=== PATIENT | female | born 1985 | race Caucasian/White ===

== ENCOUNTER 2018-05-17 18:49 | Emergency (ER) | payer MEDICAID ==
[~2018-05-17] VITALS: Ht 157.5 cm; Wt 59.0 kg
[2018-05-17 19:08] VITALS: BP_SYST 101
--- NOTE | 2018-05-17 19:08 | NUR ---
Patient to ER bed 4 to gown for evaluation. Side rails up.
--- NOTE | 2018-05-17 19:30 | NUR ---
Patient to ER via triage with c/o weakness, tingling to her upper extremities, and c/o nausea x 1 week. Patient is awake, alert and oriented in no acute distress, vital signs stable, respirations even and unlabored, skin warm and dry to touch. Patient is awaiting evaluation by ER MD, will continue to observe and assess.
--- NOTE | 2018-05-17 19:43 | NUR ---
ED MD Pearl at bedside for medical evaluation.
[2018-05-17] MEDS ORDERED: NACL 0.9% 1,000 ML IV ONE (20:00)
--- NOTE | 2018-05-17 20:20 | NUR ---
Patient resting quietly in no acute distress, IV fluids infusing without difficulty, no redness or swelling noted at site.
[2018-05-17 20:31] LABS: CALCIUM 8.3 mg/dL (8.4-11.0); CREATININE 0.55 mg/dL (0.55-1.30); POTASSIUM 3.6 mmol/L (3.5-5.1)
[2018-05-17 20:33] LABS: MEAN CORPUSCULAR HGB CONC 34 % (32-36); MONOCYTES # (AUTO) 0.3 K/uL (0.0-1.0)
[2018-05-17 20:36] LABS: ALBUMIN 3.8 g/dL (3.4-4.8); BASOPHILS % (AUTO) 0.4 % (0.0-2.0); EOSINOPHILS % (AUTO) 0.7 % (0.0-4.0); HEMATOCRIT 34.3 % (36-48); HEMOGLOBIN 11.6 g/dL (12.0-16.0); LYMPHOCYTES # (AUTO) 1.1 K/uL (1.0-5.5); LYMPHOCYTES % (AUTO) 18.6 % (20.5-51.5); MEAN CORPUSCULAR HEMOGLOBIN 25 pg (27-31); MEAN CORPUSCULAR VOLUME 74 fL (79.0-98.0); MONOCYTES % (AUTO) 4.4 % (1.7-9.3); NEUTROPHILS # (AUTO) 4.6 K/uL (1.8-7.7); NEUTROPHILS % (AUTO) 75.9 % (40.0-70.0); PLATELET COUNT (AUTO) 225 K/uL (130-430); RED BLOOD CELL COUNT(AUTO) 4.62 MIL/uL (4.2-6.2); RED CELL DISTRIBUTION WIDTH 17.5 % (9.0-15.0); TOTAL BILIRUBIN 0.7 mg/dL (0.0-1.0)
--- NOTE | 2018-05-17 20:45 | NUR ---
Dr Pearl at bedside speaking with patient regarding results and plan of care. Questions answered by Dr Pearl.
[2018-05-17 21:05] VITALS: BP_SYST 104
--- NOTE | 2018-05-17 21:05 | NUR ---
Patient given written and verbal discharge instructions and verbalizes understanding. ER MD discussed with patient the results and treatment provided. Patient in stable condition. ID arm band removed. IV catheter removed intact and dressing applied, no active bleeding. No RX given. Patient educated on pain management and to follow up with PMD. Pain Scale 0. Opportunity for questions provided and answered. Medication side effect fact sheet provided. Patient resting quietly in no acute distress, vital signs stable, patient left ER ambulating with slow, steady gait in no acute distress.
== END 2018-05-17 21:05 | disposition home or self-care (01) ==
LOC: SED 18:49
DX: T67.5XXA Heat exhaustion, unspecified, initial encounter (principal); D64.9 Anemia, unspecified; X58.XXXA Exposure to other specified factors, initial encounter; Y93.89 Activity, other specified; Y92.89 Other specified places as the place of occurrence of the external cause; Y99.8 Other external cause status
CPT/HCPCS: 36415; 80053; 85025; 96360; 99284; J7030

== ENCOUNTER 2018-08-09 20:07 | Emergency (ER) | payer MEDICAID ==
[~2018-08-09] VITALS: Ht 157.5 cm; Wt 59.0 kg
[2018-08-09 20:26] VITALS: BP_SYST 113
[2018-08-09] MEDS ORDERED: NACL 0.9% 1,000 ML IV ONE (21:48)
[2018-08-09 21:54] LABS: BILIRUBIN,URINE NEGATIVE (NEGATIVE); BLOOD, URINE NEGATIVE (NEGATIVE); CLARITY/URINE CLEAR (CLEAR); COLOR,URINE YELLOW (YELLOW); GLUCOSE,URINE NEGATIVE (NEGATIVE); KETONES,URINE NEGATIVE (NEGATIVE); LEUKOCYTE ESTERASE ,URINE NEGATIVE (NEGATIVE); NITRITE, URINE NEGATIVE (NEGATIVE); PROTEIN URINE TRACE (NEGATIVE)
[2018-08-09] MEDS ORDERED: ONDANSETRON HCL 4 MG/2 ML VIAL IVP ONE (22:00)
[2018-08-09] MEDS ORDERED: KETOROLAC TROMETHAMINE 30 MG VIAL IVP ONE (22:00)
[2018-08-09 22:17] LABS: HEMOGLOBIN 11.5 g/dL (12.0-16.0); MEAN CORPUSCULAR HEMOGLOBIN 26 pg (27-31); MEAN CORPUSCULAR HGB CONC 33 % (32-36); MEAN CORPUSCULAR VOLUME 80 fL (79.0-98.0); PLATELET COUNT (AUTO) 170 K/uL (130-430); RED BLOOD CELL COUNT(AUTO) 4.38 MIL/uL (4.2-6.2); RED CELL DISTRIBUTION WIDTH 13.3 % (9.0-15.0); WHITE BLOOD COUNT (AUTO) 3.8 K/uL (4.8-10.8)
[2018-08-09] MEDS: NACL 0.9% 1,000 ML IV ONE ×2 (22:18→23:26)
[2018-08-09 22:27] LABS: CALCIUM 8.1 mg/dL (8.4-11.0); CREATININE 0.59 mg/dL (0.55-1.30); POTASSIUM 3.3 mmol/L (3.5-5.1)
[2018-08-09 22:31] LABS: ALBUMIN 3.5 g/dL (3.4-4.8); TOTAL BILIRUBIN 0.8 mg/dL (0.0-1.0)
[2018-08-09 22:32] LABS: INR 1.1 (0.8-1.2)
[2018-08-09 22:59] LABS: BAND % (MANUAL) 3 % (0-6); BASOPHILS % (MANUAL) 0 % (0-2); EOSINOPHILS % (MANUAL) 2 % (0-7); LYMPHOCYTES % (MANUAL) 32 % (20-46); MONOCYTES % (MANUAL) 6 % (0-11)
[2018-08-10 00:21] VITALS: BP_SYST 111
== END 2018-08-10 00:21 | disposition home or self-care (01) ==
LOC: SED 20:07
DX: K52.9 Noninfective gastroenteritis and colitis, unspecified (principal); R53.81 Other malaise; R03.0 Elevated blood-pressure reading, without diagnosis of hypertension; Z90.49 Acquired absence of other specified parts of digestive tract
CPT/HCPCS: 36415; 80053; 81003; 81025; 82150; 83690; 85007; 85027; 85610; 85730; 86710; 96361; 96374; 96375; 99284; J1885; J2405; J7030

== ENCOUNTER 2018-11-14 20:42 | Emergency (ER) | payer MEDICAID ==
[~2018-11-14] VITALS: Ht 157.5 cm; Wt 61.2 kg
[2018-11-14 20:50] VITALS: BP_SYST 109
[2018-11-14 22:00] VITALS: BP_SYST 109
== END 2018-11-14 22:00 | disposition home or self-care (01) ==
LOC: SED 20:42
DX: B86 Scabies (principal); R21 Rash and other nonspecific skin eruption
CPT/HCPCS: 99282

== ENCOUNTER 2019-01-14 20:35 | Emergency (ER) | payer MEDICAID ==
[~2019-01-14] VITALS: Ht 157.5 cm; Wt 59.0 kg
[2019-01-14 20:44] VITALS: BP_SYST 108
[2019-01-14] MEDS ORDERED: LIDOCAINE 1% 10 MG/ML, 20 ML MDV INJ ONE (22:00)
[2019-01-14] MEDS ORDERED: BACITRACIN 1 GM OINT TP ONE (22:30)
[2019-01-14 22:44] VITALS: BP_SYST 110
[2019-01-14] MEDS ORDERED: IBUPROFEN 800 MG TABLET PO ONE (22:45)
== END 2019-01-14 22:45 | disposition home or self-care (01) ==
LOC: SED 20:35
DX: S91.201A Unspecified open wound of right great toe with damage to nail, initial encounter (principal); W51.XXXA Accidental striking against or bumped into by another person, initial encounter; X58.XXXA Exposure to other specified factors, initial encounter; Y93.89 Activity, other specified; Y92.89 Other specified places as the place of occurrence of the external cause; Y99.8 Other external cause status
CPT/HCPCS: 11730; 99283; J2001

== ENCOUNTER 2019-06-05 15:30 | Emergency (ER) | payer MEDICAID ==
[~2019-06-05] VITALS: Ht 157.5 cm; Wt 61.7 kg
[2019-06-05 15:39] VITALS: BP_SYST 118
--- NOTE | 2019-06-05 15:42 | NUR ---
Patient to ER bed 07 to gown for evaluation. Side rails up.
--- NOTE | 2019-06-05 15:44 | NUR ---
Pt brought by self , A&Ox4, ambulatory , pt presents to ER with c/o diffuse abdominal pain , constipation, N/V starting one week ago, no active vomiting noted at this time, pt denies vaginal bleeding, skin pink and warm, cap refill <3, VSS.
--- NOTE | 2019-06-05 16:08 | NUR ---
Dr Dexter at bedside examining patient
[2019-06-05] MEDS ORDERED: KETOROLAC TROMETHAMINE 60 MG/2 ML VIAL IM ONE (16:15)
[2019-06-05 16:40] LABS: BASOPHILS % (AUTO) 0.5 % (0.0-2.0); EOSINOPHILS # (AUTO) 0.1 K/uL (0.0-0.4); EOSINOPHILS % (AUTO) 1.3 % (0.0-4.0); HEMATOCRIT 34.6 % (36-48); HEMOGLOBIN 11.3 g/dL (12.0-16.0); LYMPHOCYTES % (AUTO) 15.7 % (20.5-51.5); MEAN CORPUSCULAR HEMOGLOBIN 26 pg (27-31); MEAN CORPUSCULAR HGB CONC 33 % (32-36); MEAN CORPUSCULAR VOLUME 80 fL (79.0-98.0); MONOCYTES # (AUTO) 0.4 K/uL (0.0-1.0); MONOCYTES % (AUTO) 5.7 % (1.7-9.3); NEUTROPHILS # (AUTO) 4.9 K/uL (1.8-7.7); NEUTROPHILS % (AUTO) 76.8 % (40.0-70.0); PLATELET COUNT (AUTO) 224 K/uL (130-430); RED BLOOD CELL COUNT(AUTO) 4.36 MIL/uL (4.2-6.2); RED CELL DISTRIBUTION WIDTH 14.2 % (9.0-15.0); WHITE BLOOD COUNT (AUTO) 6.4 K/uL (4.8-10.8)
--- NOTE | 2019-06-05 16:45 | NUR ---
Pt A&Ox4,VSS, respirations even and unlabored
[2019-06-05 16:58] LABS: CALCIUM 8.5 mg/dL (8.4-11.0); CREATININE 0.62 mg/dL (0.55-1.30); POTASSIUM 3.7 mmol/L (3.5-5.1)
[2019-06-05 17:06] LABS: ALBUMIN 3.3 g/dL (3.4-4.8); TOTAL BILIRUBIN 0.2 mg/dL (0.0-1.0)
--- NOTE | 2019-06-05 18:30 | NUR ---
Pt off the unit for CT
--- NOTE | 2019-06-05 18:44 | NUR ---
Pt returned from CT on stable condition.
--- NOTE | 2019-06-05 18:44 | NUR ---
Pt A&Ox4, VSS, respirations even and unlabored.
--- NOTE | 2019-06-05 19:03 | NUR ---
Julio vicente in [facility] - 06/05/19 at 1903 by [email or web address] Pt c/o abdominal burning , Dr Dexter notified.
--- NOTE | 2019-06-05 19:03 | NUR ---
Pt c/o sensation of burning in the abdominal area , Dr Dexter notified.
--- NOTE | 2019-06-05 19:04 | NUR ---
Report given to Vanita POLLACK
--- NOTE | 2019-06-05 19:14 | NUR ---
ER Dr. Dexter at bedside explained results to patient.
--- NOTE | 2019-06-05 19:14 | NUR ---
medication was given, pt tolerated well. No adverse reaction, will continue to monitor.
[2019-06-05] MEDS ORDERED: MAG HYDROX/AL HYDROX/SIMETH 30 ML, DICYCLOMINE HCL 20 MG, LIDOCAINE VISCOUS 2% 15ML (PO... PO ONE ×3 (19:15)
[2019-06-05 19:25] VITALS: BP_SYST 118
--- NOTE | 2019-06-05 19:26 | NUR ---
Patient given written and verbal discharge instructions and verbalizes understanding. ER MD discussed with patient the results and treatment provided. Patient in stable condition. ID arm band removed. Rx of Tramadol given. Patient educated on pain management and to follow up with PMD. Pain Scale 0. Opportunity for questions provided and answered. Medication side effect fact sheet provided.
== END 2019-06-05 19:25 | disposition home or self-care (01) ==
LOC: SED 15:30
DX: R74.0 Nonspecific elevation of levels of transaminase and lactic acid dehydrogenase [LDH] (principal); R10.30 Lower abdominal pain, unspecified; Z90.49 Acquired absence of other specified parts of digestive tract
CPT/HCPCS: 36415; 74018; 74176; 80053; 81002; 81025; 83690; 85025; 96372; 99284; J1885; J2001

== ENCOUNTER 2021-05-08 21:23 | Emergency (ER) | payer MEDICAID ==
[~2021-05-08] VITALS: Ht 157.5 cm; Wt 72.6 kg
[2021-05-08 21:32] VITALS: BP_SYST 118
[2021-05-08 22:43] LABS: EOSINOPHILS # (AUTO) 0.1 K/uL (0.0-0.4); HEMOGLOBIN 11.6 g/dL (12.0-16.0); WHITE BLOOD COUNT (AUTO) 5.8 K/uL (4.8-10.8)
[2021-05-08 22:48] LABS: BASOPHILS % (AUTO) 0.7 % (0.0-2.0); EOSINOPHILS % (AUTO) 2.3 % (0.0-4.0); HEMATOCRIT 34.6 % (36-48); LYMPHOCYTES # (AUTO) 1.5 K/uL (1.0-5.5); LYMPHOCYTES % (AUTO) 25.8 % (20.5-51.5); MEAN CORPUSCULAR HEMOGLOBIN 27 pg (27-31); MEAN CORPUSCULAR HGB CONC 34 % (32-36); MEAN CORPUSCULAR VOLUME 80 fL (79.0-98.0); MONOCYTES # (AUTO) 0.4 K/uL (0.0-1.0); MONOCYTES % (AUTO) 6.5 % (1.7-9.3); NEUTROPHILS # (AUTO) 3.8 K/uL (1.8-7.7); NEUTROPHILS % (AUTO) 64.7 % (40.0-70.0); PLATELET COUNT (AUTO) 212 K/uL (130-430); RED BLOOD CELL COUNT(AUTO) 4.35 MIL/uL (4.2-6.2); RED CELL DISTRIBUTION WIDTH 14.1 % (9.0-15.0)
[2021-05-08 22:49] LABS: CALCIUM 8.1 mg/dL (8.4-11.0); CREATININE 0.68 mg/dL (0.55-1.30); POTASSIUM 3.8 mmol/L (3.5-5.1)
[2021-05-08 23:04] LABS: ALBUMIN 3.5 g/dL (3.4-4.8); THYROID STIMULATING HORMONE 0.45 uIu/mL (0.36-3.74); TOTAL BILIRUBIN 0.2 mg/dL (0.0-1.0)
[2021-05-09 00:53] LABS: BILIRUBIN,URINE NEGATIVE (NEGATIVE); BLOOD, URINE 1+ (NEGATIVE); CLARITY/URINE CLEAR (CLEAR); COLOR,URINE YELLOW (YELLOW); GLUCOSE,URINE NEGATIVE (NEGATIVE); KETONES,URINE NEGATIVE (NEGATIVE); LEUKOCYTE ESTERASE ,URINE NEGATIVE (NEGATIVE); NITRITE, URINE POSITIVE (NEGATIVE); PROTEIN URINE NEGATIVE (NEGATIVE); UROBILINOGEN,URINE 0.2 (0.2-1.0)
[2021-05-09 00:55] LABS: BACTERIA,URINE MODERATE /HPF (None Seen)
[2021-05-09 00:58] LABS: BARBITURATE, URINE NEGATIVE (NEG <=200); BENZODIAZEPINE, URINE NEGATIVE (NEG <=150); CANNABINOID, URINE NEGATIVE (NEG <=50); COCAINE, URINE NEGATIVE (NEG <=150); METHAMPHETAMINES SCREEN,URINE NEGATIVE (NEG <=500); OPIATE, URINE NEGATIVE (NEG <=100); PHENCYCLIDINE SCREEN,URINE NEGATIVE (NEG <=25); UR TRICYCLIC ANTIDEPRESSANTS NEGATIVE (NEG <=300); URINE AMPHETAMINE NEGATIVE (NEG <=500); URINE METHADONE NEGATIVE (NEG <=200); URINE OXYCODONE SCREEN NEGATIVE (NEG <=100); URINE PROPOXYPHENE SCREEN NEGATIVE (NEG <=300)
[2021-05-09] MEDS ORDERED: CEPH250C PO (01:58)
[2021-05-09] MEDS ORDERED: cephALEXin 500 MG CAPSULE PO ONE (02:00)
[2021-05-09 02:22] VITALS: BP_SYST 118
== END 2021-05-09 02:22 | disposition home or self-care (01) ==
LOC: SED 21:23
DX: R20.2 Paresthesia of skin (principal); Z79.899 Other long term (current) drug therapy
CPT/HCPCS: 36415; 70450-TC; 76376; 80053; 80307; 81000; 81025; 84443; 85025; 87086; 99284

== ENCOUNTER 2021-11-15 | Emergency (ER) | payer MEDICAID ==
[~2021-11-15] VITALS: Ht 157.5 cm; Wt 72.6 kg
[~2021-11-15] MED LIST: CEPH250C PO
[2021-11-15 00:10] VITALS: BP_SYST 128
[2021-11-15] MEDS ORDERED: NACL 0.9% 1,000 ML IV ONE (00:45)
[2021-11-15] MEDS ORDERED: KETOROLAC TROMETHAMINE 30 MG VIAL IVP ONE (00:45)
[2021-11-15] MEDS ORDERED: ONDANSETRON HCL 4 MG/2 ML VIAL IVP ONE (00:45)
[2021-11-15 01:24] LABS: CALCIUM 8.3 mg/dL (8.4-11.0); CREATININE 0.6 mg/dL (0.55-1.30); POTASSIUM 3.6 mmol/L (3.5-5.1)
[2021-11-15 01:30] LABS: ALBUMIN 3.5 g/dL (3.4-4.8); BASOPHILS % (AUTO) 0.4 % (0.0-2.0); EOSINOPHILS # (AUTO) 0.1 K/uL (0.0-0.4); EOSINOPHILS % (AUTO) 1.2 % (0.0-4.0); HEMATOCRIT 34.2 % (36-48); HEMOGLOBIN 11.3 g/dL (12.0-16.0); LYMPHOCYTES # (AUTO) 1.6 K/uL (1.0-5.5); LYMPHOCYTES % (AUTO) 24.6 % (20.5-51.5); MEAN CORPUSCULAR HEMOGLOBIN 24 pg (27-31); MEAN CORPUSCULAR HGB CONC 33 % (32-36); MEAN CORPUSCULAR VOLUME 74 fL (79.0-98.0); MONOCYTES # (AUTO) 0.4 K/uL (0.0-1.0); MONOCYTES % (AUTO) 6.1 % (1.7-9.3); NEUTROPHILS # (AUTO) 4.5 K/uL (1.8-7.7); NEUTROPHILS % (AUTO) 67.7 % (40.0-70.0); PLATELET COUNT (AUTO) 218 K/uL (130-430); RED BLOOD CELL COUNT(AUTO) 4.62 MIL/uL (4.2-6.2); RED CELL DISTRIBUTION WIDTH 15.2 % (9.0-15.0); TOTAL BILIRUBIN 0.3 mg/dL (0.0-1.0); WHITE BLOOD COUNT (AUTO) 6.6 K/uL (4.8-10.8)
[2021-11-15 01:33] LABS: BILIRUBIN,URINE NEGATIVE (NEGATIVE); BLOOD, URINE 1+ (NEGATIVE); CLARITY/URINE CLEAR (CLEAR); COLOR,URINE YELLOW (YELLOW); GLUCOSE,URINE NEGATIVE (NEGATIVE); KETONES,URINE NEGATIVE (NEGATIVE); LEUKOCYTE ESTERASE ,URINE NEGATIVE (NEGATIVE); NITRITE, URINE NEGATIVE (NEGATIVE); PROTEIN URINE TRACE (NEGATIVE)
[2021-11-15] MEDS ORDERED: MORPHINE 4 MG INJ. 4 MG/ML VIAL IVP ONE (01:45)
[2021-11-15] MEDS ORDERED: MORPHINE 4 MG INJ. 4 MG/ML VIAL ONE (01:49)
[2021-11-15] MEDS ORDERED: IBUP-1971 PO (02:37)
[2021-11-15] MEDS ORDERED: HYDR-3917 PO (02:37)
[2021-11-15] MEDS ORDERED: ONDA8TAB60 PO (02:37)
[2021-11-15] MEDS ORDERED: OMEP40CA20 PO (02:37)
[2021-11-15] MEDS ORDERED: CIPR500T5 PO (02:39)
[2021-11-15 03:53] VITALS: BP_SYST 114
[2021-11-15 04:14] LABS: URINE SULFO SALICYLIC ACID NEGATIVE (NEGATIVE)
[2021-11-15 04:15] LABS: BACTERIA,URINE MODERATE /HPF (None Seen); MUCUS,URINE None Seen /LPF (None Seen); RBC,URINE 20-50 /HPF (0-3)
== END 2021-11-15 03:53 | disposition home or self-care (01) ==
LOC: SED
DX: K42.9 Umbilical hernia without obstruction or gangrene (principal); R10.13 Epigastric pain; R19.7 Diarrhea, unspecified
CPT/HCPCS: 36415; 74176; 76376; 80053; 81000; 81025; 83690; 85025; 87086; 96374; 96375; 99284; J1885; J2270; J2405

== ENCOUNTER 2022-01-07 23:35 | Emergency (ER) | payer MEDICAID ==
[~2022-01-07] VITALS: Ht 157.5 cm; Wt 77.1 kg
[~2022-01-07 23:35] MED LIST changes: +CIPR500T5 PO; +HYDR-3917 PO; +IBUP-1971 PO; +OMEP40CA20 PO; +ONDA8TAB60 PO
[2022-01-07 23:53] VITALS: BP_SYST 130
--- NOTE | 2022-01-07 23:58 | NUR ---
Pt placed to ER waiting room in stable condition.
--- NOTE | 2022-01-08 00:20 | NUR ---
Pt placed to ER bed 03, report given to RANJEET Locke.
--- NOTE | 2022-01-08 00:34 | NUR ---
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 NO THE BILATERAL FLANK PAIN RETURNED 6/10 ACHING FEELING. FOR SEVERAL DAYS,NO N/V/D. NO RESP DISTRESS. BLOOD OBTAINED AND LAC 20G IV STARTED. 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 PT ALSO C/O EPIGASTRIC PAIN FOR SERVAL DAYS
--- NOTE | 2022-01-08 00:42 | NUR ---
URINE PREG= NEGATIVE
[2022-01-08 01:20] LABS: BILIRUBIN,URINE NEGATIVE (NEGATIVE); BLOOD, URINE NEGATIVE (NEGATIVE); CLARITY/URINE CLEAR (CLEAR); COLOR,URINE YELLOW (YELLOW); GLUCOSE,URINE NEGATIVE (NEGATIVE); KETONES,URINE NEGATIVE (NEGATIVE); LEUKOCYTE ESTERASE ,URINE NEGATIVE (NEGATIVE); NITRITE, URINE NEGATIVE (NEGATIVE); PH,URINE 6.5 (5.0-8.0); PROTEIN URINE NEGATIVE (NEGATIVE); UROBILINOGEN,URINE 0.2 (0.2-1.0)
[2022-01-08 01:22] LABS: HEMOGLOBIN 11.6 g/dL (12.0-16.0)
[2022-01-08 01:22] LABS: CALCIUM 8.8 mg/dL (8.4-11.0); CREATININE 0.7 mg/dL (0.55-1.30); POTASSIUM 3.7 mmol/L (3.5-5.1)
[2022-01-08 01:27] LABS: ALBUMIN 3.7 g/dL (3.4-4.8); TOTAL BILIRUBIN 0.2 mg/dL (0.0-1.0)
[2022-01-08 01:28] LABS: BASOPHILS % (AUTO) 0.7 % (0.0-2.0); EOSINOPHILS # (AUTO) 0.1 K/uL (0.0-0.4); EOSINOPHILS % (AUTO) 1.3 % (0.0-4.0); HEMATOCRIT 36.2 % (36-48); LYMPHOCYTES # (AUTO) 1.9 K/uL (1.0-5.5); MEAN CORPUSCULAR HEMOGLOBIN 24 pg (27-31); MEAN CORPUSCULAR HGB CONC 32 % (32-36); MEAN CORPUSCULAR VOLUME 76 fL (79.0-98.0); MONOCYTES # (AUTO) 0.5 K/uL (0.0-1.0); MONOCYTES % (AUTO) 6.6 % (1.7-9.3); NEUTROPHILS # (AUTO) 4.4 K/uL (1.8-7.7); NEUTROPHILS % (AUTO) 64.4 % (40.0-70.0); PLATELET COUNT (AUTO) 222 K/uL (130-430); RED BLOOD CELL COUNT(AUTO) 4.79 MIL/uL (4.2-6.2); RED CELL DISTRIBUTION WIDTH 15.4 % (9.0-15.0); WHITE BLOOD COUNT (AUTO) 6.9 K/uL (4.8-10.8)
[2022-01-08 01:41] LABS: HCG,QUAL RESULT NEGATIVE (NEGATIVE)
[2022-01-08] MEDS ORDERED: MAG-AL HYDROX/SIMETH 30 ML UDC PO ONE (02:00)
[2022-01-08] MEDS ORDERED: LIDOCAINE VISCOUS 2%, 15 ML UDC MM ONE (02:00)
[2022-01-08] MEDS ORDERED: DICYCLOMINE HCL 10 MG/5 ML SOLUTION PO ONE (02:00)
[2022-01-08] MEDS ORDERED: FAMO-132 PO (02:20)
--- NOTE | 2022-01-08 02:37 | NUR ---
UPON D/C HOME PT GIVEN INSTRUCTIONS AND WORK NOTE, PT VERBALIZED PAIN RESOLVED AND NO RESP DISTRESS AND NO C/O CP UPON D/C. LAC 20G IV D/C'D, CATH COMPLETE ADN INTACT WITH DRSG APPLIED TO SITE. PT AMBULATED OUT OF ER BY ITZEL.
[2022-01-08 02:59] VITALS: BP_SYST 123
== END 2022-01-08 02:59 | disposition home or self-care (01) ==
LOC: SED 23:35
DX: R10.9 Unspecified abdominal pain (principal); M54.50 Low back pain, unspecified; Z79.899 Other long term (current) drug therapy
CPT/HCPCS: 36415; 80053; 81003; 81025; 83690; 84703; 85025; 99284; J2001

== ENCOUNTER 2022-06-04 19:27 | Emergency (ER) | payer MEDICAID ==
[~2022-06-04] VITALS: Ht 157.5 cm; Wt 78.9 kg
[~2022-06-04 19:27] MED LIST changes: +FAMO-132 PO
[2022-06-04 19:32] VITALS: BP_SYST 113
[2022-06-04 20:13] LABS: BASOPHILS % (AUTO) 0.4 % (0.0-2.0); EOSINOPHILS % (AUTO) 0.3 % (0.0-4.0); HEMATOCRIT 35.4 % (36-48); HEMOGLOBIN 11.7 g/dL (12.0-16.0); LYMPHOCYTES # (AUTO) 0.7 K/uL (1.0-5.5); LYMPHOCYTES % (AUTO) 11.7 % (20.5-51.5); MEAN CORPUSCULAR HEMOGLOBIN 25 pg (27-31); MEAN CORPUSCULAR HGB CONC 33 % (32-36); MEAN CORPUSCULAR VOLUME 75 fL (79.0-98.0); MONOCYTES # (AUTO) 0.2 K/uL (0.0-1.0); MONOCYTES % (AUTO) 4.1 % (1.7-9.3); NEUTROPHILS % (AUTO) 83.5 % (40.0-70.0); PLATELET COUNT (AUTO) 213 K/uL (130-430); RED CELL DISTRIBUTION WIDTH 14.9 % (9.0-15.0)
[2022-06-04 20:48] LABS: CREATININE 0.58 mg/dL (0.55-1.30); POTASSIUM 3.7 mmol/L (3.5-5.1)
[2022-06-04 20:53] LABS: ALBUMIN 3.5 g/dL (3.4-4.8); C-REACTIVE PROTEIN QUANT 1.3 mg/dL (0-0.5); TOTAL BILIRUBIN 0.5 mg/dL (0.0-1.0)
[2022-06-04] MEDS ORDERED: HYDR-3917 PO (21:55)
[2022-06-04] MEDS ORDERED: IBUP-1969 PO (21:55)
[2022-06-04] MEDS ORDERED: IBUPROFEN 600 MG TABLET PO ONE (22:00)
[2022-06-04] MEDS ORDERED: HYDROcodone/ACETAMIN 10-325 MG TAB PO ONE (22:00)
[2022-06-04 23:00] VITALS: BP_SYST 125
[2022-06-04 23:12] LABS: BILIRUBIN,URINE NEGATIVE (NEGATIVE); CLARITY/URINE CLEAR (CLEAR); COLOR,URINE YELLOW (YELLOW); GLUCOSE,URINE NEGATIVE (NEGATIVE); KETONES,URINE NEGATIVE (NEGATIVE); LEUKOCYTE ESTERASE ,URINE NEGATIVE (NEGATIVE); NITRITE, URINE NEGATIVE (NEGATIVE); PROTEIN URINE NEGATIVE (NEGATIVE)
[2022-06-04 23:22] LABS: BLOOD, URINE 3+ (NEGATIVE)
[2022-06-05 00:34] LABS: BACTERIA,URINE MODERATE /HPF (None Seen); RBC,URINE 20-50 /HPF (0-3); WBC,URINE 0-3 /HPF (0-3)
[2022-06-05 00:36] LABS: MUCUS,URINE 3+ /LPF (None Seen)
== END 2022-06-04 23:00 | disposition home or self-care (01) ==
LOC: SED 19:27
DX: R10.32 Left lower quadrant pain (principal); Z79.899 Other long term (current) drug therapy
CPT/HCPCS: 36415; 76376; 80053; 81000; 83605; 83690; 84703; 85025; 86140; 87086; 87186-TC; 99284

== ENCOUNTER 2023-07-26 20:26 | Emergency (ER) | payer MEDICAID ==
[~2023-07-26] VITALS: Ht 157.5 cm; Wt 81.6 kg
[~2023-07-26 20:26] MED LIST changes: +IBUP-1969 PO
[2023-07-26 21:16] VITALS: BP_SYST 113; PULSE 113; RESP 18; TEMP 98.3; O2SAT 97
[2023-07-26 23:53] LABS: BASOPHILS # (AUTO) 0.1 K/uL (0.0-0.2); BASOPHILS % (AUTO) 0.3 % (0.0-2.0); EOSINOPHILS % (AUTO) 0.1 % (0.0-4.0); HEMATOCRIT 39.1 % (36-48); HEMOGLOBIN 12.4 g/dL (12.0-16.0); LYMPHOCYTES # (AUTO) 1.1 K/uL (1.0-5.5); LYMPHOCYTES % (AUTO) 6.5 % (20.5-51.5); MEAN CORPUSCULAR HEMOGLOBIN 24 pg (27-31); MEAN CORPUSCULAR HGB CONC 32 % (32-36); MEAN CORPUSCULAR VOLUME 77 fL (79.0-98.0); MONOCYTES # (AUTO) 0.5 K/uL (0.0-1.0); MONOCYTES % (AUTO) 2.9 % (1.7-9.3); NEUTROPHILS # (AUTO) 15.8 K/uL (1.8-7.7); NEUTROPHILS % (AUTO) 90.2 % (40.0-70.0); PLATELET COUNT (AUTO) 274 K/uL (130-430); RED CELL DISTRIBUTION WIDTH 14.8 % (9.0-15.0); WHITE BLOOD COUNT (AUTO) 17.5 K/uL (4.8-10.8)
[2023-07-27 00:15] LABS: CREATININE 0.61 mg/dL (0.55-1.30); POTASSIUM 4.2 mmol/L (3.5-5.1)
[2023-07-27 00:20] LABS: ALBUMIN 3.7 g/dL (3.4-4.8); TOTAL BILIRUBIN 0.6 mg/dL (0.0-1.0); TOTAL PROTEIN, SERUM 7.5 g/dL (6.4-8.3)
[2023-07-27] MEDS ORDERED: MORPHINE 4 MG INJ. 4 MG/ML VIAL IVP ONE ×2 (01:00→03:30)
[2023-07-27] MEDS ORDERED: ONDANSETRON HCL 4 MG/2 ML VIAL IVP ONE (01:00)
[2023-07-27] MEDS ORDERED: NACL 0.9% 1,000 ML IV ONE (01:00)
[2023-07-27 02:01] LABS: BILIRUBIN,URINE NEGATIVE (NEGATIVE); CLARITY/URINE CLEAR (CLEAR); COLOR,URINE YELLOW (YELLOW); GLUCOSE,URINE NEGATIVE (NEGATIVE); KETONES,URINE NEGATIVE (NEGATIVE); LEUKOCYTE ESTERASE ,URINE NEGATIVE (NEGATIVE); NITRITE, URINE NEGATIVE (NEGATIVE); PROTEIN URINE NEGATIVE (NEGATIVE); UROBILINOGEN,URINE 0.2 (0.2-1.0)
[2023-07-27 02:09] LABS: BLOOD, URINE TRACE (NEGATIVE)
[2023-07-27 02:10] LABS: BACTERIA,URINE None Seen /HPF (None Seen); WBC,URINE 0-3 /HPF (0-3)
[2023-07-27] MEDS ORDERED: POLY119P2 PO (05:37)
[2023-07-27] MEDS ORDERED: HYDR-3917 PO (05:37)
[2023-07-27] MEDS ORDERED: DICY-14 PO (05:37)
[2023-07-27 05:49] VITALS: BP_SYST 104; PULSE 89; RESP 20; TEMP 97.7; O2SAT 100
== END 2023-07-27 05:51 | disposition home or self-care (01) ==
LOC: SED 20:26
DX: K43.9 Ventral hernia without obstruction or gangrene (principal); R10.9 Unspecified abdominal pain; D72.829 Elevated white blood cell count, unspecified; R11.2 Nausea with vomiting, unspecified; Z79.899 Other long term (current) drug therapy
CPT/HCPCS: 99285; 80053; 81000; 83690; 85025; 87040; 36415; 81025; 83605; 74176; 96374; 96361; 96375; 76376; 96376; J2405; J2270; J7030

== ENCOUNTER 2024-01-21 20:50 | Emergency (ER) | payer MEDICAID ==
[~2024-01-21 20:50] MED LIST changes: +DICY-14 PO; +POLY119P2 PO
== END 2024-01-21 22:05 | disposition left against medical advice (07) ==
LOC: SED 20:50
DX: T81.49XA Infection following a procedure, other surgical site, initial encounter (principal); Z53.21 Procedure and treatment not carried out due to patient leaving prior to being seen by health care provider

== ENCOUNTER 2024-03-13 09:19 | Emergency (ER) | payer MEDICAID ==
[~2024-03-13] VITALS: Ht 157.5 cm; Wt 77.1 kg
[2024-03-13 09:20] VITALS: BP_SYST 120; PULSE 89; RESP 18; TEMP 98.2; O2SAT 98
[2024-03-13] MEDS: KETOROLAC TROMETHAMINE 60 MG/2 ML VIAL IM ONE (09:41)
[2024-03-13] MEDS: HYDROcodone/ACETAMIN 10-325 MG TAB PO ONE (09:42)
[2024-03-13 09:54] LABS: ERYTHROCYTE SEDIMENTATION RATE 11 MM/HR (0-20)
[2024-03-13 10:01] LABS: BASOPHILS % (AUTO) 0.6 % (0.0-2.0); EOSINOPHILS # (AUTO) 0.1 K/uL (0.0-0.4); EOSINOPHILS % (AUTO) 1.7 % (0.0-4.0); HEMATOCRIT 34.5 % (36-48); HEMOGLOBIN 11.3 g/dL (12.0-16.0); LYMPHOCYTES # (AUTO) 1.2 K/uL (1.0-5.5); MEAN CORPUSCULAR HEMOGLOBIN 25 pg (27-31); MEAN CORPUSCULAR HGB CONC 33 % (32-36); MEAN CORPUSCULAR VOLUME 76 fL (79.0-98.0); MONOCYTES # (AUTO) 0.3 K/uL (0.0-1.0); MONOCYTES % (AUTO) 5.2 % (1.7-9.3); NEUTROPHILS # (AUTO) 3.7 K/uL (1.8-7.7); NEUTROPHILS % (AUTO) 69.5 % (40.0-70.0); PLATELET COUNT (AUTO) 245 K/uL (130-430); RED BLOOD CELL COUNT(AUTO) 4.55 MIL/uL (4.2-6.2); RED CELL DISTRIBUTION WIDTH 16.2 % (9.0-15.0); WHITE BLOOD COUNT (AUTO) 5.4 K/uL (4.8-10.8)
[2024-03-13 10:19] LABS: CALCIUM 8.1 mg/dL (8.4-11.0); CREATININE 0.6 mg/dL (0.55-1.30); POTASSIUM 4.4 mmol/L (3.5-5.1); URIC ACID 3.3 mg/dL (2.4-7.0)
[2024-03-13 10:31] LABS: PROTHROMBIN TIME 10.2 SECS (9.5-12.5)
[2024-03-13 10:32] LABS: SERUM HCG (QUALITATIVE) NEGATIVE (NEGATIVE)
== END 2024-03-13 11:17 | disposition home or self-care (01) ==
LOC: SED 09:19
DX: M79.671 Pain in right foot (principal)
CPT/HCPCS: 99284; 80048; 84703; 84550; 85025; 85610; 85651; 85730; 36415; 73610; 96372; 82397; J1885

== ENCOUNTER 2024-03-14 22:44 | Emergency (ER) | payer MEDICAID ==
[~2024-03-14] VITALS: Ht 157.5 cm; Wt 78.5 kg
[2024-03-14 22:58] VITALS: BP_SYST 113; PULSE 78; RESP 18; TEMP 98.1; O2SAT 99
[2024-03-15] MEDS: KETOROLAC TROMETHAMINE 30 MG VIAL IM ONE (00:58)
[2024-03-15 01:35] VITALS: BP_SYST 115; PULSE 81; RESP 18; TEMP 98.1; O2SAT 99
== END 2024-03-15 01:10 | disposition home or self-care (01) ==
LOC: SED 22:44
DX: M79.671 Pain in right foot (principal)
CPT/HCPCS: 99283; 96372; J1885

== ENCOUNTER 2024-04-11 00:52 | Emergency (ER) | payer MEDICAID ==
[~2024-04-11] VITALS: Ht 157.5 cm; Wt 77.1 kg
[2024-04-11 01:00] VITALS: BP_SYST 124; PULSE 80; RESP 16; TEMP 96.5; O2SAT 97
[2024-04-11 01:19] LABS: BILIRUBIN,URINE NEGATIVE (NEGATIVE); BLOOD, URINE 1+ (NEGATIVE); COLOR,URINE YELLOW (YELLOW); GLUCOSE,URINE NEGATIVE (NEGATIVE); KETONES,URINE NEGATIVE (NEGATIVE); LEUKOCYTE ESTERASE ,URINE NEGATIVE (NEGATIVE); NITRITE, URINE NEGATIVE (NEGATIVE); PROTEIN URINE NEGATIVE (NEGATIVE); UROBILINOGEN,URINE 0.2 (0.2-1.0)
[2024-04-11 01:35] LABS: CLARITY/URINE HAZY (CLEAR)
[2024-04-11 01:36] LABS: BACTERIA,URINE None Seen /HPF (None Seen); WBC,URINE 0-3 /HPF (0-3)
[2024-04-11] MEDS: KETOROLAC TROMETHAMINE 15 MG VIAL IVP ONE (01:56)
[2024-04-11] MEDS: ONDANSETRON HCL 4 MG/2 ML VIAL IVP ONE (01:58)
[2024-04-11 02:01] LABS: BASOPHILS % (AUTO) 0.7 % (0.0-2.0); EOSINOPHILS # (AUTO) 0.1 K/uL (0.0-0.4); EOSINOPHILS % (AUTO) 2.3 % (0.0-4.0); HEMATOCRIT 33.2 % (36-48); HEMOGLOBIN 11.3 g/dL (12.0-16.0); LYMPHOCYTES # (AUTO) 1.8 K/uL (1.0-5.5); LYMPHOCYTES % (AUTO) 29.1 % (20.5-51.5); MEAN CORPUSCULAR HEMOGLOBIN 25 pg (27-31); MEAN CORPUSCULAR HGB CONC 34 % (32-36); MEAN CORPUSCULAR VOLUME 75 fL (79.0-98.0); MONOCYTES # (AUTO) 0.4 K/uL (0.0-1.0); MONOCYTES % (AUTO) 6.8 % (1.7-9.3); NEUTROPHILS # (AUTO) 3.8 K/uL (1.8-7.7); NEUTROPHILS % (AUTO) 61.1 % (40.0-70.0); PLATELET COUNT (AUTO) 239 K/uL (130-430); RED BLOOD CELL COUNT(AUTO) 4.45 MIL/uL (4.2-6.2); RED CELL DISTRIBUTION WIDTH 15.8 % (9.0-15.0); WHITE BLOOD COUNT (AUTO) 6.3 K/uL (4.8-10.8)
[2024-04-11 02:22] LABS: ALANINE AMINOTRANSFERASE 14 U/L (12-78); ALBUMIN 3.4 g/dL (3.4-4.8); ANION GAP 8 (5-15); ASPARTATE AMINOTRANSFERASE 13 U/L (10-37); BILIRUBIN,DIRECT < 0.1 mg/dL (0.0-0.3); CALCIUM 8.3 mg/dL (8.4-11.0); CARBON DIOXIDE 27 mmol/L (23-29); CHLORIDE 104 mmol/L (98-107); CREATININE 0.62 mg/dL (0.55-1.30); GFR AFRICAN AMERICAN 139 mL/min (>90); GFR NON AFRICAN-AMERICAN 115 mL/min (>90); GLUCOSE 106 mg/dL (74-106); LIPASE 57 U/L (16-77); POTASSIUM 3.9 mmol/L (3.5-5.1); SODIUM SERUM 139 mmol/L (136-145); TOTAL BILIRUBIN 0.3 mg/dL (0.0-1.0); TOTAL PROTEIN, SERUM 7.3 g/dL (6.4-8.3); UREA NITROGEN, BLOOD 13 mg/dL (8-21)
[2024-04-11 05:05] VITALS: BP_SYST 104; PULSE 78; RESP 18; TEMP 97.3; O2SAT 99
== END 2024-04-11 05:05 | disposition home or self-care (01) ==
LOC: SED 00:52
DX: R10.12 Left upper quadrant pain (principal); R10.32 Left lower quadrant pain; R11.0 Nausea; D50.9 Iron deficiency anemia, unspecified; Z79.899 Other long term (current) drug therapy; Z79.2 Long term (current) use of antibiotics
CPT/HCPCS: 99285; 74176; 96374; 96375; 80076; 80048; 81001; 83690; 85025; 36415; 81025; J1885; J2405; 81000; 81015

== ENCOUNTER 2024-08-12 22:01 | Emergency (ER) | payer MEDICAID ==
[~2024-08-12] VITALS: Ht 157.5 cm; Wt 81.6 kg
[2024-08-12 22:16] VITALS: BP_SYST 116; PULSE 87; RESP 20; TEMP 98; O2SAT 98
[2024-08-12 23:09] VITALS: BP_SYST 116; PULSE 87; RESP 20; TEMP 98; O2SAT 98
== END 2024-08-12 23:09 | disposition home or self-care (01) ==
LOC: SED 22:01
DX: G89.18 Other acute postprocedural pain (principal); E07.9 Disorder of thyroid, unspecified; Z79.899 Other long term (current) drug therapy
CPT/HCPCS: 99281